=== PATIENT | female | born 1950 | race Caucasian/White ===

== ENCOUNTER 2020-12-26 05:41 | Emergency (ER) | payer OTHER ==
[2020-12-26 06:14] LABS: EOSINOPHIL 2.3 & (0-7); HCT 43.8 % (37.0-47.0); HGB 14.1 g/dl (12.5-16.0); MCH 28.9 pg (25.0-31.0); MCHC 32.2 g/dL (32.0-36.0); MCV 89.8 fL (78.0-100.0); MPV 9.4 fL (6.0-9.5); NEUTROPHIL 57.7 % (41-80); PLT 306 K/uL (150-400); RBC 4.88 M/uL (4.20-5.40); RDW 13.1 % (11.5-14.0); WBC 6.01 K/uL (4.0-10.5)
[2020-12-26 06:43] LABS: ALBUMIN 4.1 g/dL (3.4-5.0); BILIRUBIN - TOTAL 0.5 mg/dL (0.2-1.0); BUN/CREAT RATIO (CALC) 22.1 RATIO; CREATININE 0.77 mg/dL (0.51-0.95); GLOBULIN (CALCULATION) 3.8 g/dL; POTASSIUM 3.4 mmol/L (3.5-5.1); TOTAL PROTEIN 7.9 g/dL (6.4-8.2)
[2020-12-26 07:25] LABS: MAGNESIUM 2.1 mg/dL (1.8-2.4)
== END 2020-12-26 11:35 | disposition home or self-care (01) ==
LOC: FER 05:41
PROVIDERS: Emergency Medicine
DX: R07.89 Other chest pain (principal); I10 Essential (primary) hypertension; Z20.822 Contact with and (suspected) exposure to COVID-19; Z88.2 Allergy status to sulfonamides
CPT/HCPCS: 36415; 71045; 80053; 83735; 83880; 84443; 84484; 85025; 93005; U0002